=== PATIENT | male | born 1940 | race Caucasian/White ===

== ENCOUNTER 2017-08-08 10:40 | Outpatient (CLI) | payer MEDICARE ==
--- NOTE | 2017-08-08 16:01 | NM ---
WHOLE BODY BONE SCAN: 08/08/2017 HISTORY: Prostate cancer. Assess for osseous metastatic disease. COMPARISON: None. TECHNIQUE: Anterior and posterior whole body imaging obtained following the intravenous administration of 33 mil licuries of technetium 99m labeled MDP. FINDINGS: Physiologic activity is seen in the region of the urinary bladder and kidneys. On the frontal imaging, there is an area of increased radiotracer activity at the level of the thorac ic inlet, superior to the manubrium, which is not seen on posterior imaging. This may represent ante rior vertebral body metastatic disease at the cervicothoracic junction. There are multiple foci of r adiotracer activity in the region of the sternum, suggesting sternal metastatic disease. On posterio r imaging, there are a few small foci of increased radiotracer activity overlying multiple mid thorac ic vertebral bodies, suggesting osseous metastatic disease, in the T6, T7, and T8 regions. There is a questionable lesion within the posterior right 12th, 8th, 5th, and 3rd ribs. There is a probable l esion within the posterior left 11th rib. On posterior imaging, there is a focus of increased radiot racer activity to the right of midline, at L2, suggesting osseous metastatic disease. Foci of increased radiotracer activity are noted in the region of the sacrum, on the left, in overlyi ng bilateral iliac wings. There is increased radiotracer activity in the region of the acetabulum an d the inferior pubic ramus on the left, which could represent osseous metastatic disease or Paget's d isease. IMPRESSION: Findings suggesting widespread osseous metastatic disease. These findings could be best assessed via CT and/or MRI. POS: OLGA
== END 2017-08-08 10:41 | disposition home or self-care (01) ==
LOC: NM 10:40
PROVIDERS: ATTEND Internal Medicine Hematology & Oncology
DX: C61 Malignant neoplasm of prostate (principal); C79.51 Secondary malignant neoplasm of bone
CPT/HCPCS: 78306; A9503

== ENCOUNTER 2019-06-19 15:00 | Outpatient (CLI) | payer MEDICARE ==
--- NOTE | 2019-06-19 16:21 | RAD ---
CERVICAL SPINE: HISTORY: Cervicalgia. TECHNIQUE: A total of seven views. FINDINGS: There are moderate hypertrophic degenerative changes. Anterior bridging osteophytes are noted at all levels below C3. Osteophytes are most pronounced at C5-C6 and at C6-C7. Loss of disk space is promine nt at C5-C6 and C6-C7. There is posterior spondylosis at C5-C6 and C6-C7. There is evidence of forami nal encroachment at these levels. No significant listhesis or subluxation is seen with flexion or ext ension. IMPRESSION: Moderate hypertrophic degenerative changes of the mid and lower cervical spine, as described. POS: TPC
--- NOTE | 2019-06-19 16:23 | RAD ---
THORACIC SPINE: 06/19/19 Three views. HISTORY: Chondrocalcinosis. Back pain. Thoracic vertebrae maintain normal height and alignment. Degenerative changes are noted with anterior bridging osteophytes seen anteriorly and laterally at several thoracic levels. Most pronounced in th e lower thoracic spine. No lytic or blastic process. No compression deformity. IMPRESSION: Mild to moderate hypertrophic degenerative changes. POS: TPC
== END 2019-06-19 15:01 | disposition home or self-care (01) ==
LOC: BICRAD 15:00
PROVIDERS: ATTEND Internal Medicine Rheumatology
DX: M54.2 Cervicalgia (principal); M11.20 Other chondrocalcinosis, unspecified site; M47.812 Spondylosis without myelopathy or radiculopathy, cervical region; M47.814 Spondylosis without myelopathy or radiculopathy, thoracic region
CPT/HCPCS: 72052; 72072

== ENCOUNTER 2019-07-31 09:10 | Outpatient (CLI) | payer MEDICARE ==
--- NOTE | 2019-07-31 12:33 | NM ---
WHOLE BODY BONE SCAN: DATE: 07/31/2019. COMPARISON: 08/08/2017. HISTORY: Metastatic prostate cancer with involvement of the bone. TECHNIQUE: Anterior and posterior whole-body imaging obtained following the intravenous administration of 32.6 m Ci technetium 99m labeled [place] MDP. FINDINGS: There is physiologic activity in the region of the kidneys and urinary bladder. No calvarial lesion n oted. No scintigraphic evidence of osseous metastatic disease noted involving the upper or lower extremitie s. There is increased radiotracer activity within the pelvis overlying the region of the left ischium, a s seen on the prior examination, evidence of osseous metastatic disease. There are also multiple lesions overlying the region of the sacrum, right greater than left, also suggesting stable osseous m etastatic disease. There is a probable stable lesion within the right aspect of the L3 vertebral body. Multiple scattered foci of increased radiotracer activity on the basis of osseous metastatic di sease noted within the thoracic spine, particularly the upper thoracic spine, best seen on the posterior imaging. The degree of osseous metastatic disease within the upper thoracic spine and mid t horacic spine has increased in number and intensity when compared to the prior exam suggesting progression of disease within the thoracic spine. Multiple posterior rib lesions are again noted, rig ht greater than left, not significantly changed. There is radiotracer activity in the region of the sternum, suggesting stable osseous metastatic disease in in this region. IMPRESSION: Evidence of widespread osseous metastatic disease. Findings suggest progression of disease within the upper and mid thoracic spine. If clinically warranted, osseous metastatic disease within the thoracic spine could be best assessed via MRI with and without contrast or CT examination. Transcribed Date/Time: 07/31/2019 1:26 PM
== END 2019-07-31 09:11 | disposition home or self-care (01) ==
LOC: NM 09:10
PROVIDERS: ATTEND Internal Medicine Hematology & Oncology
DX: C61 Malignant neoplasm of prostate (principal); C79.51 Secondary malignant neoplasm of bone; M25.511 Pain in right shoulder
CPT/HCPCS: 78306; A9503

== ENCOUNTER 2020-03-26 09:04 | Outpatient (CLI) | payer MEDICARE ==
--- NOTE | 2020-03-26 13:24 | NM ---
Radionucleotide bone scan HISTORY: Prostate cancer with metastatic disease. Restaging. COMPARISON: 07/31/2019. IMPRESSION : Markedly intense uptake associated with the sternal and right sacrum are again demonstrated. Prominen t but less intense widespread areas of uptake involving the thoracolumbar spine, bilateral ribs, and left inferior pubic ramus are not significantly changed. Degenerative type uptake of the shoulders and knees are apparent. No Neurologic lesions are reliably demonstrated. IMPRESSION : Stable exam. Widespread osseous metastatic disease without significant change.
== END 2020-03-26 09:05 | disposition home or self-care (01) ==
LOC: NM 09:04
PROVIDERS: ATTEND Internal Medicine Hematology & Oncology
DX: C61 Malignant neoplasm of prostate (principal); C79.51 Secondary malignant neoplasm of bone
CPT/HCPCS: 78306; A9503

== ENCOUNTER 2020-06-20 02:50 | Inpatient (IN) | payer MEDICARE ==
--- NOTE | 2020-06-20 03:42 | PDOC.FPRHP ---
- History of Present Illness Chief Complaint: SOB History of Present Illness: Pt is a 79yo male with hx of HFrEF s/p pacemaker/defibrillator, HTN, DM2 who presents with SOB. He says he started having "a funny feeling" in his chest and found that he needed to take deep breaths to catch his breath. He says his nose feels stopped up and his mask makes it worse. It started at rest while he was at the cancer clinic. He has a history prostate cancer with bone mets. At home he continued to have some SOB. He has a hard time describing his symptoms. No modifiers. Admits to some possible dizziness/lightheadedness, although he is a somewhat poor historian. His curriculum development specialist is Dr Maria, and he said he had an appointment recently and was told his pacemaker/defibrillator was good for 2 more years. He was seen at [facility] and transferred to our facility. ED Course: COVID, flu: neg BNP 333 - Allergies/Adverse Reactions Allergies Allergy/AdvReac Type Severity Reaction Status Date / Time latex Allergy "real red Verified 08/08/19 17:32 & itching" minocycline Allergy Severe Verified 06/20/20 04:08 Hives - Home Medications Medication Instructions Recorded Confirmed Type Aspirin Chewable [Aspirin Chewable 81 mg PO DAILY #0 tab 02/16/15 06/20/20 Rx Tablet] Carvedilol [Coreg] 25 mg PO BID #0 tab 02/16/15 06/20/20 Rx Furosemide [Lasix] 20 mg PO QAM #0 tab 02/16/15 06/20/20 Rx Isosorbide Mononitrate [Imdur ER] 30 mg PO DAILY #0 tab 02/16/15 06/20/20 Rx Lisinopril [Zestril] 20 mg PO BID #0 tab 02/16/15 06/20/20 Rx Enzalutamide [Xtandi] 160 mg PO DAILY 06/20/20 06/20/20 History HYDROcodone Bit/APAP 5/325 [Kunia] 1 - 2 tab PO Q4HR PRN 06/20/20 06/20/20 History Leflunomide [Arava] 20 mg PO DAILY 06/20/20 06/20/20 History Potassium Chloride [K-Dur] 20 meq PO DAILY 06/20/20 06/20/20 History Rosuvastatin Calcium 40 mg PO HS 06/20/20 06/20/20 History metFORMIN [Glucophage] 1,000 mg PO BID 06/20/20 06/20/20 History - History PMHx: HFrEF, DM2, HTN, HLD, OA PSHx: prostatectomy, AICD, tonsillectomy, hernia repair, skin cancer removal FHx: alzheimer, leukemia Social: no T/A/D - Review of Systems General: denies: fever/chills, fatigue Eyes: denies: vision changes ENT: reports: nasal congestion Respiratory: reports: shortness of breath. denies: cough, congestion Cardiovascular: reports: chest pain (chronic due to mets). denies: edema Gastrointestinal: denies: nausea, vomiting, diarrhea Genitourinary: denies: dysuria Skin: denies: rashes Musculoskeletal: reports: pain (chronic due to bone mets) Neurological: reports: other (feels light headed) - Vital signs BP: 147/66, HR 38, RR 16, O2 96% on RA, T 98.1F - Physical Exam Constitutional: NAD, awake, alert and oriented HEENT: normocephalic and atraumatic, grossly normal vision, grossly normal hearing, MMM Neck: supple, FROM -Heart: bradycardic w/ ectopic beats, systolic murmur best heard at left sternal border with no radiation to carotids Lungs: CTAB, no respiratory distress Abdomen: soft, non-tender, bowel sounds present Musculoskeletal: normal structure, normal tone, ROM grossly normal Neurological: no focal deficit Skin: no rash/lesions, capillary refill <2 seconds Heme/Lymphatic: no unusual bruising or bleeding Psychiatric: normal mood and affect FMR H&P: Results - Labs Result Diagrams: 06/20/20 05:06 06/20/20 05:06 - EKG Interpretation EKG: reviewed: wide QRS, dual paced, bigeminy - Radiology Interpretation Chest x-ray Status: report reviewed by me (bone mets) FMR H&P: A/P - Plan #Symptomatic bradycardia -has AICD in place, recently had appointment and reports no concerns -ekg: bigeminy, wide QRS, T wave inversions, dual paced -CXR: no acute process -trop <0.01, BNP 333, will trend trop -pt reports he has a hx of HFrEF 20%, records are not in our system -will repeat ekg and order pacemaker interrogation -consult cardiology in am -admit to tele for continuous tele monitoring #HFrEF -unable to see most recent echo -consult cards as above #DM2 -continue home meds #HTN -will hold beta shauna #HLD -continue home meds #Prostate cancer with mets -aware PCP: CC: Ki, GERARD IVF: SL DVT ppx: lovenox Diet: HH/CC Dispo: Admit inpatient tele, pending repeat ekg and pacemaker interrogation, consult cards in am. FMR H&P: Upper Level - Plan Date/Time: 06/20/20 4412 I, Usha Andres, have evaluated this patient and agree with findings/plan as outlined by landscape maintenance internship resident. Pertinent changes/additions are listed here. 79 yo M with PMH prostate CA, cardiomyopathy s/p defib, DM, gout, HTN presents for SOB present x2 days. He reports this began after been given COVID vaccine. No chest pain, N, V, headache. Letterpress Setter is Dr. Maria who he follows regularly with. Pulse noted in [facility] of 38. PE: Gen: NAD Heart: bradycardia, murmur 3/6 Lungs: CTAB, no wheezing. No increased work of breathing. Abd: soft, nontender, ND, BS+ Ext: no cyanosis or edema WBC 4.3 Hgb 10.4 Platelet 117 BNP 333 Cr1.01 Trop <0.01 CXR negative, sclerotic osseous metastases Symptomatic bradycardia - Complicated by AICD, in outside ED rate was reported to be paced around 40 with bigeminy bringing rate to 70s. EKG wide QRS, QTC prolonged 465, PVCs - Hold home BB - Initial trop neg, repeat here pending. Denies CP. Repeat EKG ordered. Euvolemic on exam. - Requested pacemaker interrogation - Consult cardiology in am Chronic problems per landscape maintenance internship note. Code: FULL Prophylaxis: Lovenox PCP: Dr. Emerson Attending: Eliza Disposition: admit to telemetry inpatient Addendum - Attending - Attending Attestation Date/Time: 06/20/20 4800 I personally evaluated the patient and discussed the management with Dr. Avelar/Mckenna. I agree with the History, Examination, Assessment and Plan documented above with any addition or exceptions noted below. Patient here as transfer due to symptomatic Bigeminy. We will consult Cardiology this morning who can hopefully provide some relief with AICD adjustment. Further mgmt pending their recs and clinical course.
[2020-06-20 03:50] VITALS: BMI 23.7
[2020-06-20] MEDS ORDERED: Dextrose 5% in Water 1,000 ML IV PRN (04:25)
[2020-06-20] MEDS ORDERED: Dextrose 50% Abboject 50 ML SYRINGE SLOW IVP PRN (04:25)
[2020-06-20] MEDS ORDERED: HumaLOG 300 UNITS/3 ML VIAL SC PRN (04:25)
[2020-06-20] MEDS ORDERED: HYDROcodone/Acetaminophen 5/325 mg Tablet PO PRN (04:33)
[2020-06-20 05:39] LABS: Anion Gap 12 mmol/L (10-20); BUN (Urea Nitrogen) 19 mg/dL (8.4-25.7); Calc. Creatinine Clearance 73 mL/min (70-130); Calcium 8.8 mg/dL (7.8-10.44); Carbon Dioxide 24 mmol/L (23-31); Chloride 108 mmol/L (98-107); Glucose 130 mg/dL (83-110); Potassium 3.9 mmol/L (3.5-5.1); Sodium 140 mmol/L (136-145)
[2020-06-20] MEDS: HYDROcodone/Acetaminophen 5/325 mg Tablet PO PRN (05:40)
[2020-06-20 06:11] LABS: #Lymphocytes 0.9 thou/uL (1.20-3.40); #Monocytes 0.4 thou/uL (0.11-0.59); #Neutrophils 2.8 thou/uL (1.40-6.50); %Basophils 0.6 % (0.0-1.0); %Eosinophils 0.9 % (0.0-10.0); %Lymphocytes 20.7 % (21.0-51.0); %Monocytes 8.6 % (0.0-10.0); %Neutrophils 69.2 % (42.0-75.0); Hemoglobin 10.3 g/dL (14.0-18.0); Mean Corpuscular HGB CONC 33.1 g/dL (32.0-36.0); Mean Corpuscular Hemoglobin 29.2 pg (27.0-31.0); Mean Platelet Volume 8.2 fL (7.4-10.4); Platelet Count 100 thou/uL (130-400); RBC Distribution Width 13.6 % (11.5-14.5); Red Blood Cell (RBC) Count 3.54 mill/uL (4.70-6.10); White Blood Cell (WBC) Count 4.1 thou/uL (4.8-10.8)
[2020-06-20 06:12] LABS: Platelet Morphology Comment Appears Decreased
[2020-06-20] MEDS: Lisinopril 20 MG TAB PO SCH ×2 (09:10→20:57)
[2020-06-20] MEDS: Potassium Chloride 20 MEQ TAB PO SCH (09:10)
[2020-06-20] MEDS: metFORMIN 500 MG TAB PO SCH ×2 (09:10→20:57)
[2020-06-20] MEDS: Furosemide 20 MG TAB PO SCH (09:10)
[2020-06-20] MEDS: Enoxaparin Sodium 40 MG/0.4 ML SYRINGE SC SCH (09:10)
[2020-06-20] MEDS: Leflunomide 10 mg Tablet PO SCH (09:56)
[2020-06-20] MEDS ORDERED: Iopamidol-370 76% 500 ML 1 ML ONE (10:10)
[2020-06-20] MEDS ORDERED: Furosemide 40 MG/4 ML VIAL SLOW IVP SCH (11:15)
--- NOTE | 2020-06-20 12:17 | CON ---
DATE OF CONSULTATION: 06/20/2020 REASON FOR CONSULTATION: Shortness of breath and bradycardia. PRIMARY FOOTWEAR PRODUCTION MACHINE OPERATOR: Geovanni Maria. HISTORY OF PRESENT ILLNESS: Mr. Sandra is a pleasant 79-year-old white gentleman, who comes to the hospital for worsening shortness of breath. He was seen in the ER and was thought to be bradycardic and was admitted for further evaluation and care. He was evaluated in the ER in [place] and apparently had a chest x-ray that did not show any fluid overload except for just metastatic lesions to the lungs. He did not have a CAT scan to rule out PE and a BNP was in the 300s range. He has a history of a dilated cardiomyopathy with an EF of 20% and had an AICD placed in the past. He follows with Dr. Maria. He has had stenting to his LAD in 2014, but has not needed anything else from the coronary stand point since then. His last echo was in 2019 and EF had normalized to 55-60%. On my evaluation, Mr. Sandra feels pretty much the same as he did yesterday. He has an AICD in place and has been followed closely and has been normal functioning throughout. It was actually interrogated yesterday evening, and the interrogation shows normal functioning AICD with normal thresholds on his leads. PAST MEDICAL HISTORY: 1. Prostate cancer, metastatic to bones. 2. Hyperlipidemia. 3. Gout. 4. Coronary artery disease, status post stenting to the LAD in 2014. 5. History of nonsustained VT. 6. History of left bundle-branch block. 7. History of hypertension. 8. History of nonischemic dilated cardiomyopathy normalized EF on last evaluation at 55% to 60% in 2019. 9. Status post BiV AICD. SURGICAL HISTORY: 1. BiV AICD placement. 2. Colonoscopy and polypectomy. 3. Drug-eluting stent to the proximal LAD in 2014. 4. Prostatectomy with lymph node biopsy. 5. Tonsillectomy. 6. Bilateral cataract surgery. 7. Hernia repair. FAMILY HISTORY: Noncontributory. SOCIAL HISTORY: No alcohol, tobacco, or drugs. OUTPATIENT MEDICATIONS: 1. Aspirin 81 a day. 2. Carvedilol 25 mg b.i.d. 3. Lasix 20 mg a day. 4. Imdur 30 mg a day. 5. Lisinopril 20 mg b.i.d. 6. Enzalutamide 160 mg a day. 7. [place] p.r.n. 8. Arava 20 mg a day. 9. Potassium chloride 20 mEq a day. 10. Rosuvastatin 40 mg at bedtime. 11. Metformin 1000 mg b.i.d. ALLERGIES: 1. LATEX. 2. MINOCYCLINE. REVIEW OF SYSTEMS: A 12-point review of systems was done and was found to be negative other than stated in the history of present illness. PHYSICAL EXAMINATION: VITAL SIGNS: Temperature 97.6, pulse 73, respiratory rate 16, sats 95% on room air, blood pressure 127/64. GENERAL: Awake, alert, and oriented x3, in no distress. HEENT: Normocephalic and atraumatic. NECK: Supple. LUNGS: Have mild crackles at the bases, but get better with a cough. CARDIOVASCULAR: S1 and S2. No S3 or S4. Heart rate in the 60s to 70s. ABDOMEN: Soft. Positive bowel sounds. EXTREMITIES: No edema. SKIN: Warm and dry. LABORATORY DATA: Laboratory work was reviewed. CBC with a white count of 4.1, hemoglobin of 10.3 with a baseline of around 12 to 13, hematocrit 31, platelet count of a 100. Chemistry was reviewed, pretty much unremarkable. Troponin was 0.02. BNP was 330. Magnesium and calcium were all normal. IMAGING STUDIES: I do not have a chest x-ray on file, but apparently was done at [facility] and it showed only metastatic bone lesions. Interrogation of the defibrillator shows over 3 years left of battery with normal functioning leads. EKG was reviewed. It shows biventricular pacer with frequent PVCs in a pattern of bigeminy. ASSESSMENT AND PLAN: 1. Shortness of breath. 2. Bradycardia. Not really bradycardia, but it is just a bigeminal rhythm that likely showed his bradycardia on either blood pressure machines and an O2 monitor size. Currently, his heart rate is in the 70s on a BiV pacer with no suggestion of his leads not working adequately. 3. We will get a chest x-ray to look at lead placement. 4. Shortness of breath may be related to other issues. CT of the chest with contrast to rule out pulmonary embolism with his history of metastatic prostate cancer. He is at risk for this. 5. His OptiVol level is slowly climbing on the interrogation, so we will give him one dose of IV Lasix. Thank you for letting us to participate in the care of your patient. We will follow. Dr. Maria, his primary pneumatic tube fitter, will follow up in the morning. Job ID: [id number] MTDD
--- NOTE | 2020-06-20 12:52 | RAD ---
RADIOGRAPH CHEST 1 VIEW: DATE: 06/20/2020 HISTORY: 79-year-old male with dyspnea FINDINGS: Patient's chin obscures lung apices, especially the right. AICD with left-sided generator and multiple leads. There are no airspace densities, pulmonary edema, large pneumothorax, or cardiomegaly. The lateral co stophrenic angles are sharp. IMPRESSION: 1. No acute cardiopulmonary findings. 2. Implantable cardioverter-defibrillator
[2020-06-20] MEDS: HumaLOG 300 UNITS/3 ML VIAL SC PRN (13:52)
--- NOTE | 2020-06-20 14:57 | CT ---
CT ANGIOGRAM THORAX WITH CONTRAST: (CTA pulmonary angiogram) DATE: 06/20/2020 HISTORY: 79-year-old male with chest pain and dyspnea TECHNIQUE: IV injection of iodinated contrast. Scan acquisition timing attempted to coincide with iodinated contrast bolus reaching maximal density in pulmonary arteries. 3-D MIP reconstructions. FINDINGS: Numerous osteoblastic lesions throughout all levels of thoracic vertebrae, and also in other osseous structures. The left-sided generator for AICD causes significant streak artifact, obscuring the lumen of proximal and mid branches of left upper lobe pulmonary artery. In all of the other pulmonary arteries, there is no thrombus. No thoracic aortic aneurysm or dissection. No cardiomegaly, pericardial effusion, pleural effusion, or pneumothorax. Lungs are essentially clear. Trachea and major bronchi are patent and clear. No mediastinal or hilar lymphadenopathy. Stent and/or extensive heavy atherosclerotic calcification in LAD. IMPRESSION: 1) metastatic bone disease from prostate cancer. 2) left upper lobe pulmonary artery branches obscured by streak artifact from implantable cardioverte r-defibrillator generator. 3) no pulmonary thromboembolism identified elsewhere. 4) no acute pulmonary findings. 5) coronary atherosclerotic disease
[2020-06-20] MEDS: Rosuvastatin 20 MG TAB PO SCH (20:57)
[2020-06-21 04:47] LABS: Anion Gap 13 mmol/L (10-20); BUN (Urea Nitrogen) 19 mg/dL (8.4-25.7); Calc. Creatinine Clearance 63 mL/min (70-130); Carbon Dioxide 24 mmol/L (23-31); Chloride 105 mmol/L (98-107); Glucose 111 mg/dL (83-110); Magnesium 1.8 mg/dL (1.6-2.6); Potassium 3.7 mmol/L (3.5-5.1); Sodium 138 mmol/L (136-145)
--- NOTE | 2020-06-21 06:47 | PDOC.FM ---
- Subjective Subjective: Doing well. Complains of rib, shoulder, and elbow pain this morning. His shortness of breath (that was his initial chief complaint) has improved. - Objective MAR Reviewed: Yes Vital Signs & Weight: Vital Signs (12 hours) Temp Pulse Resp BP BP Pulse Ox 06/21/20 04:00 98.3 F 84 14 158/76 H 96 06/21/20 00:00 97.9 F 06/20/20 20:57 142/96 H 06/20/20 19:30 98.9 F 63 16 142/96 H 96 Weight Weight 70.851 kg I&O: 06/19/20 06/20/20 06/21/20 06:59 06:59 06:59 Intake Total 720 Output Total 2150 Balance -1430 Result Diagrams: 06/20/20 05:06 06/21/20 04:14 Phys Exam - Physical Examination Constitutional: NAD HEENT: PERRLA, moist MMs Neck: no nodes, no JVD, supple Respiratory: no wheezing, no rales, no rhonchi, clear to auscultation bilateral Cardiovascular: RRR, no significant murmur, no rub Irregular rhythm on telemetry. Gastrointestinal: soft, non-tender Musculoskeletal: no edema, pulses present Neurological: non-focal, normal sensation, moves all 4 limbs Psychiatric: normal affect, A&O x 3 Skin: no rash, normal turgor Dx/Plan (1) Bradycardia Code(s): R00.1 - BRADYCARDIA, UNSPECIFIED Status: Acute (2) AICD (automatic cardioverter/defibrillator) present Code(s): Z95.810 - PRESENCE OF AUTOMATIC (IMPLANTABLE) CARDIAC DEFIBRILLATOR Status: Acute (3) Prostate cancer metastatic to multiple sites Code(s): C61 - MALIGNANT NEOPLASM OF PROSTATE Status: Acute (4) CAD (coronary artery disease) Code(s): I25.10 - ATHSCL HEART DISEASE OF [place] CORONARY ARTERY W/O ANG PCTRS Status: Acute (5) Type II diabetes mellitus Status: Acute (6) HTN (hypertension) Code(s): I10 - ESSENTIAL (PRIMARY) HYPERTENSION Status: Acute (7) HLD (hyperlipidemia) Code(s): E78.5 - HYPERLIPIDEMIA, UNSPECIFIED Status: Acute (8) HFrEF (heart failure with reduced ejection fraction) Code(s): I50.20 - UNSPECIFIED SYSTOLIC (CONGESTIVE) HEART FAILURE Status: Acute - Plan Plan: Symptomatic bradycardia -has AICD in place, recently had appointment and reports no concerns -ekg: bigeminy, wide QRS, T wave inversions, dual paced -CXR: no acute process -CTA negative for PE -Cardiology consulted, Dr. Sawyer. Dr. Maria will see the patient today. - awaiting recommendations for discharge planning. HFrEF -ECHO EF 60-65% w/ diastolic dysfunction. -AICD in place. DM2 -continue home meds HTN -will hold beta shauna HLD -continue home meds Prostate cancer with mets -aware -schedule norco today to better control pain. PCP: CC: GERARD Emerson IVF: SL DVT ppx: lovenox Diet: HH/CC Dispo: Admitted inpatient tele, awaiting further cardiology recommendations.
[2020-06-21] MEDS: HYDROcodone/Acetaminophen 5/325 mg Tablet PO PRN (09:52)
[2020-06-21] MEDS: metFORMIN 500 MG TAB PO SCH ×2 (09:53→22:18)
[2020-06-21] MEDS: Furosemide 20 MG TAB PO SCH (09:53)
[2020-06-21] MEDS: Potassium Chloride 20 MEQ TAB PO SCH (09:54)
[2020-06-21] MEDS: Lisinopril 20 MG TAB PO SCH ×2 (09:54→22:18)
[2020-06-21] MEDS: Enoxaparin Sodium 40 MG/0.4 ML SYRINGE SC SCH (10:03)
[2020-06-21] MEDS ORDERED: Senokot S 8.6-50 MG TAB PO SCH ×2 (10:04→10:15)
[2020-06-21] MEDS: Leflunomide 10 mg Tablet PO SCH (10:19)
[2020-06-21] MEDS ORDERED: Carvedilol 6.25 MG TAB PO SCH (11:15)
[2020-06-21] MEDS ORDERED: Furosemide 20 MG/2 ML VIAL SLOW IVP SCH (15:00)
[2020-06-21] MEDS: HYDROcodone/Acetaminophen 5/325 mg Tablet PO SCH ×2 (15:44→18:07)
--- NOTE | 2020-06-21 17:25 | EKG ---
Test Reason : STAT Blood Pressure : / mmHG Vent. Rate : 074 BPM Atrial Rate : 074 BPM P-R Int : 000 ms QRS Dur : 156 ms QT Int : 438 ms P-R-T Axes : 000 158 018 degrees QTc Int : 486 ms Wide QRS rhythm with frequent AV dual-paced complexes and Premature supraventricular complexes in a p attern of bigeminy Right axis deviation Non-specific intra-ventricular conduction block Abnormal ECG No previous ECGs available Confirmed by DR. River STARKEY (3) on 06/21/2020 5:24:39 PM Referred By: Confirmed By:DR. River STARKEY
[2020-06-21] MEDS: Carvedilol 25 MG TAB PO SCH (18:07)
[2020-06-21] MEDS: Senokot S 8.6-50 MG TAB PO SCH (22:17)
[2020-06-21] MEDS: Rosuvastatin 20 MG TAB PO SCH (22:17)
[2020-06-22] MEDS: HYDROcodone/Acetaminophen 5/325 mg Tablet PO SCH ×5 (01:14→14:12)
[2020-06-22 04:53] LABS: Anion Gap 14 mmol/L (10-20); BUN (Urea Nitrogen) 17 mg/dL (8.4-25.7); Calc. Creatinine Clearance 70 mL/min (70-130); Calcium 8.9 mg/dL (7.8-10.44); Carbon Dioxide 25 mmol/L (23-31); Cardiac Risk 4.2 (Less than 4.5); Chloride 102 mmol/L (98-107); Cholesterol 138 mg/dl (< 200 Desired); Glucose 102 mg/dL (83-110); HDL Cholesterol 33 mg/dL (>60 Neg Risk); LDL Cholesterol, Calculated 75 mg/dL; Potassium 3.7 mmol/L (3.5-5.1); Sodium 137 mmol/L (136-145); Triglycerides 149 mg/dL (Less than 150)
--- NOTE | 2020-06-22 06:50 | PDOC.FM ---
- Subjective Subjective: Doing well this morning. States he will be leaving the hospital today whether or not he is discharged. He is anxious about the second part of his stress. He feels anxiety about being in the machine. States he is still having persistent elbow, shoulder, and rib pain that was not well controlled overnight. - Objective MAR Reviewed: Yes Vital Signs & Weight: Vital Signs (12 hours) Temp Pulse Resp BP BP Pulse Ox 06/22/20 04:00 97.9 F 60 16 135/74 96 06/21/20 22:18 116/67 06/21/20 20:30 95 06/21/20 19:30 98.1 F 60 17 116/67 95 Weight Weight 70.851 kg I&O: 06/20/20 06/21/20 06/22/20 06:59 06:59 06:59 Intake Total 720 720 Output Total 2150 1100 Balance -1430 -380 Result Diagrams: 06/20/20 05:06 06/22/20 03:44 Phys Exam - Physical Examination Constitutional: NAD HEENT: PERRLA, moist MMs Neck: no nodes, no JVD, supple Respiratory: no wheezing, no rales, no rhonchi, clear to auscultation bilateral Cardiovascular: RRR, no significant murmur, no rub Gastrointestinal: soft, non-tender, no distention Musculoskeletal: no edema, pulses present Neurological: non-focal, normal sensation Psychiatric: normal affect, A&O x 3 Skin: no rash, normal turgor, cap refill <2 seconds Dx/Plan (1) Bradycardia Code(s): R00.1 - BRADYCARDIA, UNSPECIFIED Status: Acute (2) AICD (automatic cardioverter/defibrillator) present Code(s): Z95.810 - PRESENCE OF AUTOMATIC (IMPLANTABLE) CARDIAC DEFIBRILLATOR Status: Acute (3) Prostate cancer metastatic to multiple sites Code(s): C61 - MALIGNANT NEOPLASM OF PROSTATE Status: Acute (4) CAD (coronary artery disease) Code(s): I25.10 - ATHSCL HEART DISEASE OF [place] CORONARY ARTERY W/O ANG PCTRS Status: Acute (5) Type II diabetes mellitus Status: Acute (6) HTN (hypertension) Code(s): I10 - ESSENTIAL (PRIMARY) HYPERTENSION Status: Acute (7) HLD (hyperlipidemia) Code(s): E78.5 - HYPERLIPIDEMIA, UNSPECIFIED Status: Acute (8) HFrEF (heart failure with reduced ejection fraction) Code(s): I50.20 - UNSPECIFIED SYSTOLIC (CONGESTIVE) HEART FAILURE Status: Acute - Plan Plan: Symptomatic bradycardia -has AICD in place, recently had appointment and reports no concerns -ekg: bigeminy, wide QRS, T wave inversions, dual paced -CXR: no acute process -CTA negative for PE -Cardiology consulted, Dr. Maria, appreciate recommendations. - Completed 1 part of stress test yesterday, 2nd part today. - Will give lorazepam 0.5mg prior to sending down to procedure. HFrEF -ECHO EF 60-65% w/ diastolic dysfunction. -AICD in place. DM2 -continue home meds HTN -will hold beta shauna HLD -continue home meds Prostate cancer with mets -aware -schedule norco today to better control pain. - PC consult today. PCP: CC: GERRAD Emerson IVF: SL DVT ppx: lovenox Diet: HH/CC Dispo: Admitted inpatient tele, awaiting further cardiology recommendations.
[2020-06-22] MEDS ORDERED: Furosemide 40 MG TAB PO SCH (07:30)
[2020-06-22] MEDS ORDERED: Lorazepam 2 MG/ML VIAL SLOW IVP PRN (07:52)
[2020-06-22] MEDS: Lisinopril 20 MG TAB PO SCH (10:56)
--- NOTE | 2020-06-22 10:56 | NM ---
EXAM: CARDIAC SPECT HISTORY: Chest pain, shortness of breath, coronary artery disease, status post stent, cardiomyopathy, hypertension, diabetes, dyslipidemia, left bundle-branch block, NSVT TECHNIQUE: A myocardial perfusion scan was performed using the single isotope 2 day protocol with federico hnetium 99m sestamibi. [30 mCi] was injected intravenously for the rest exam and 30 mCi for the stress study. Pharmacologic stress with adenosine was monitored and interpreted by the nurse practitioner. FINDINGS: Homogeneous tracer distribution is seen in the myocardial segments on stress and rest image s without fixed or reversible defects. Gated SPECT LVEF: 65% Wall motion exam: Normal IMPRESSION: Normal myocardial perfusion scan
[2020-06-22] MEDS: metFORMIN 500 MG TAB PO SCH (10:57)
[2020-06-22] MEDS: Leflunomide 10 mg Tablet PO SCH (10:58)
[2020-06-22] MEDS: Potassium Chloride 20 MEQ TAB PO SCH (10:58)
[2020-06-22] MEDS: Carvedilol 25 MG TAB PO SCH ×2 (10:58→16:34)
[2020-06-22] MEDS: Senokot S 8.6-50 MG TAB PO SCH (10:59)
[2020-06-22] MEDS: HumaLOG 300 UNITS/3 ML VIAL SC PRN (11:00)
[2020-06-22] MEDS: Enoxaparin Sodium 40 MG/0.4 ML SYRINGE SC SCH (11:00)
[2020-06-22] MEDS ORDERED: ADENOSINE 60 MG/20 ML VIAL ONE (13:15)
[2020-06-22 16:44] VITALS: BP 101/57; TEMP 98.5
[2020-06-23] MEDS ORDERED: Ezetimibe 10 MG TAB PO SCH (09:00)
--- NOTE | 2020-06-23 13:25 | DIS ---
DATE OF ADMISSION: 06/20/2020 DATE OF DISCHARGE: 06/22/2020 RESIDENT: Jaye Hernandez MD. ADMITTING ATTENDING: Dr. Beatty. DISCHARGE ATTENDING: Dr. Awad. CONSULTS: Dr. Maria/Dr. Sawyer. PROCEDURES: Nuclear medicine stress test which showed no evidence of abnormal myocardial perfusion. Echocardiogram which showed an ejection fraction of 60% to 65%, grade 2/3 diastolic dysfunction, delayed septal activation consistent with bundle branch block or a paced rhythm. 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 No PE and no acute pulmonary findings. PRIMARY DIAGNOSIS: Symptomatic bradycardia. SECONDARY DIAGNOSES: Heart failure with reduced ejection fraction, type 2 diabetes, hypertension, hyperlipidemia, and metastatic prostate cancer. DISCHARGE MEDICATIONS: 1. Leflunomide. 2. Metformin. 3. Potassium. 4. Cecil. 5. Rosuvastatin. 6. Xtandi. 7. Aspirin. 8. Carvedilol. 9. Isosorbide mononitrate. 10. Lasix. 11. Lisinopril. 12. Zetia. DISCONTINUED MEDICATIONS: None. HISTORY OF PRESENT ILLNESS/HOSPITAL COURSE: Mr. Sandra is a 79-year-old male who presented to the ER for evaluation of a funny feeling in his chest and shortness of breath. An EKG was placed, which showed a bradycardic rhythm with a wide QRS in a bigeminy pattern. Cardiology was consulted the morning after his admission. Per their recommendation, a CT angiogram was ordered to rule out PE. His screw machine operator single spindle, Dr. Maria, elected to perform a nuclear medicine stress test while he was here, which showed normal myocardial perfusion. His oncologist, Dr. Quijano, was contacted while inpatient to discuss prognosis and Palliative Care met with the patient and changed the status to DNAR and they elected to have an end-of-life discussion outpatient on Sunday to discuss whether or not to continue chemotherapy and goals of care. DISPOSITION: Stable. DISCHARGE INSTRUCTIONS: Location: home Diet: regular Activity: Ad verenice. Followup with primary care physician within a week. Job ID: [id number] MTDD
== END 2020-06-22 18:22 | disposition home or self-care (01) | DRG 309 ==
LOC: 2NO 02:50 → OBSVTOIN 04:25
PROVIDERS: ADMIT Student in an Organized Health Care Education/Training Program; ATTEND Student in an Organized Health Care Education/Training Program
DX: R00.1 Bradycardia, unspecified (principal); I50.22 Chronic systolic (congestive) heart failure; C79.51 Secondary malignant neoplasm of bone; I42.0 Dilated cardiomyopathy; Z66 Do not resuscitate; I11.0 Hypertensive heart disease with heart failure; E11.9 Type 2 diabetes mellitus without complications; M10.9 Gout, unspecified; C61 Malignant neoplasm of prostate; I25.10 Atherosclerotic heart disease of native coronary artery without angina pectoris; F41.9 Anxiety disorder, unspecified; Z95.810 Presence of automatic (implantable) cardiac defibrillator; Z91.040 Latex allergy status; Z88.8 Allergy status to other drugs, medicaments and biological substances; Z79.82 Long term (current) use of aspirin; Z79.899 Other long term (current) drug therapy; Z79.84 Long term (current) use of oral hypoglycemic drugs; Z85.46 Personal history of malignant neoplasm of prostate; J98.4 Other disorders of lung
CPT/HCPCS: 36415; 36416; 71045; 71275; 78452; 80048; 80061; 82565; 83735; 83880; 84153; 84484; 85025; 93005; 93010; 93017; 93306; A9500; J0153; J1650; J1815; J1940; J2060; Q9967

== ENCOUNTER 2020-11-04 09:06 | Outpatient (CLI) | payer MEDICARE | END 2020-11-04 09:07 | disposition home or self-care (01) | LOC: NM 09:06 | PROVIDERS: ATTEND Internal Medicine Hematology & Oncology | DX: C61 Malignant neoplasm of prostate (principal); C79.51 Secondary malignant neoplasm of bone | CPT/HCPCS: 78306; A9503 ==

== ENCOUNTER 2021-03-29 08:17 | Day surgery (SDC) | payer MEDICARE ==
[2021-03-29] MEDS ORDERED: Acetaminophen 500 MG TAB PO SCH (08:45)
[2021-03-29] MEDS ORDERED: diphenhydrAMINE 25 MG CAP PO SCH (08:45)
[2021-03-29] MEDS ORDERED: Sodium Chloride 0.9% 20 ML ONE (09:28)
[2021-03-29 12:26] VITALS: BP 157/75; TEMP 98.2
== END 2021-03-29 12:27 | disposition home or self-care (01) ==
LOC: ONC/OP 08:17
PROVIDERS: ATTEND Internal Medicine Hematology & Oncology
PROC: 30233N1 Transfusion of Nonautologous Red Blood Cells into Peripheral Vein, Percutaneous Approach (ICD-10-PCS; principal; 2021-03-29)
DX: D64.9 Anemia, unspecified (principal); D69.6 Thrombocytopenia, unspecified; Z88.1 Allergy status to other antibiotic agents; Z91.040 Latex allergy status
CPT/HCPCS: 36430; 86850; 86900; 86901; P9016